=== PATIENT | female | born 1935 | race Caucasian/White ===

== ENCOUNTER 2021-02-20 15:12 | Emergency (ER) | payer MEDICARE ==
[~2021-02-20 15:12] MED LIST: TAMIFLU 75MG CA75 MG PO
[2021-02-20 16:23] LABS: BASOPHIL 0.2 % (0-2); EOSINOPHIL 1.3 % (0-7); HCT 39.9 % (37.0-47.0); MCH 32.3 pg (25.0-31.0); MCHC 32.6 g/dL (32.0-36.0); MCV 99.3 fL (78.0-100.0); MONOCYTE 5.7 % (0-12); MPV 9.3 fL (6.0-9.5); NEUTROPHIL 56.6 % (41-80); NRBC 0; PLT 181 K/uL (150-400); RBC 4.02 M/uL (4.20-5.40); RDW 12.2 % (11.5-14.0); WBC 5.4 K/uL (4.0-10.5)
[2021-02-20 16:51] LABS: CREATININE 0.93 mg/dL (0.51-0.95)
[2021-02-20 17:04] LABS: CKMB 0.8 ng/mL (0.0-3.6)
[2021-02-20 17:53] LABS: BILIRUBIN 1+ mg/dL (NEGATIVE); BLOOD NEGATIVE Ery/uL (NEGATIVE); CLARITY CLEAR (CLEAR); COLOR YELLOW (YELLOW); GLUCOSE (U) NORMAL (NORMAL); LEUKOCYTES 2+ Leu/uL (NEGATIVE); NITRITE NEGATIVE (NEGATIVE); PROTEIN NEGATIVE (NEGATIVE); SPECIFIC GRAVITY >=1.030 (1.001-1.030); pH 5.5 (5.0-9.0)
[2021-02-20 18:04] LABS: BACTERIA 1+; URINARY RBC RARE
[2021-02-20 18:05] LABS: MUCOUS MODERATE
[2021-02-20] MEDS ORDERED: KEFLEX250 MG PO (18:11)
== END 2021-02-20 18:33 | disposition home or self-care (01) ==
LOC: FER 15:12
PROVIDERS: Emergency Medicine
DX: N39.0 Urinary tract infection, site not specified (principal); Z88.8 Allergy status to other drugs, medicaments and biological substances
CPT/HCPCS: 36415; 70450; 71046; 80048; 81001; 82553; 84443; 84484; 85025; 87088; 93005